=== PATIENT | female | born 1965 | race African-American/Black ===

== ENCOUNTER 2017-01-15 10:40 | Emergency (ER) | payer OTHER ==
[~2017-01-15] VITALS: Ht 160 cm; Wt 56.5 kg
[~2017-01-15 10:40] MED LIST: NITR-58 PO; PHEN-537 PO
[2017-01-15 10:44] VITALS: Ht 160 cm; Wt 56.5 kg
[2017-01-15 11:43] LABS: ADD UMIC YES; UR ASCORBIC ACID NEGATIVE (NEGATIVE); UR BACTERIA FEW /HPF (NONE SEEN); UR BILIRUBIN (Dip) NEGATIVE (NEGATIVE); UR BLOOD (Dip) 2+ mg/dL (NEGATIVE); UR CLARITY CLOUDY (CLEAR); UR COLOR YELLOW (YELLOW); UR GLUCOSE (Dip) NEGATIVE (NEGATIVE); UR KETONES (Dip) NEGATIVE (NEGATIVE); UR LEUKOCYTE ESTERASE (Dip) 3+ Leu/ul (NEGATIVE); UR MUCUS FEW /HPF (NONE SEEN); UR NITRITE (Dip) NEGATIVE (NEGATIVE); UR RBC 32 /HPF (0-5); UR SPECIFIC GRAVITY (Dip) 1.009 (1.003-1.030); UR SQUAMOUS EPITHELIAL CELL FEW /HPF (FEW); UR TOTAL PROTEIN (Dip) 2+ mg/dl (NEGATIVE); UR UROBILINOGEN (Dip) NEGATIVE (NEGATIVE)
--- NOTE | 2017-01-15 11:43 | ERD ---
ER Documentation Chief Complaint Date/Time DATE: 01/15/17 TIME: 11:41 Chief Complaint DYSURIA X 4 DAYS HPI This is a 51-year-old female presenting to the emergency department with dysuria 3 days. Patient states she has pain and burning with urination as well as frequent urination. No hematuria. No urinary frequency. No vaginal discharge or vaginal bleeding. No rash or itching. No vaginal lesions. No fevers or chills. No flank or back pain. No nausea, vomiting or diarrhea. Patient did not take medication for this. ROS All systems reviewed and are negative except as per history of present illness. Medications Home Meds Active Scripts Phenazopyridine Hcl* (Pyridium*) 100 Mg Tab, 100 MG PO TID Y for URINARY PAIN, # 8 TAB Prov:OSEI GUDINO NP 01/15/17 Nitrofurantoin Monohyd Macrocr* (Macrobid*) 100 Mg Capsr, 100 MG PO BID for 5 Days, CAP Prov:OSEI GUDINO NP 01/15/17 Nitrofurantoin Monohyd Macrocr* (Macrobid*) 100 Mg Capsr, 100 MG PO BID for 10 Days, CAP Prov:MIRELLA OZUNA PA-C 06/15/15 Phenazopyridine Hcl* (Pyridium*) 100 Mg Tab, 100 MG PO TID Y for PAIN, #14 TAB Prov:MI ALVARADO PA-C 03/17/15 Nitrofurantoin Monohyd Macrocr* (Macrobid*) 100 Mg Capsr, 100 MG PO BID for 14 Days, CAP Prov:MI ALVARADO PA-C 03/17/15 Phenazopyridine Hcl* (Pyridium*) 100 Mg Tab, 100 MG PO TID Y for DYSURIA, #8 TAB Prov:SHAE WOMACK NP 12/12/14 Nitrofurantoin Monohyd Macrocr* (Macrobid*) 100 Mg Capsr, 100 MG PO BID for 14 Days, CAP Prov:SHAE WOMACK NP 12/12/14 Allergies Allergies: Coded Allergies: ciprofloxacin (Verified Allergy, Mild, VOMITING, 01/15/17) PMhx/Soc History of Surgery: Yes (HYSTERECTOMY AND ) Anesthesia Reaction: No Hx Neurological Disorder: No Hx Respiratory Disorders: No Hx Cardiac Disorders: No Hx Psychiatric Problems: No Hx Miscellaneous Medical Probl: Yes ( kidney infection) Hx Alcohol Use: No Hx Substance Use: No Hx Tobacco Use: No Smoking Status: Never smoker Physical Exam Vitals Vital Signs Date Time Temp Pulse Resp B/P Pulse Ox O2 Delivery O2 Flow Rate FiO2 01/15/17 10:44 97.0 78 18 126/96 99 Physical Exam Const: No acute distress, alert Head: Atraumatic Eyes: Normal Conjunctiva ENT: Normal External Ears, Nose and Mouth. Neck: Full range of motion..~ No meningismus. Resp: Clear to auscultation bilaterally Cardio: Regular rate and rhythm, no murmurs Abd: Soft, non distended. Normal bowel sounds, suprapubic tenderness. Skin: No petechiae or rashes Back: No midline or flank tenderness Ext: No cyanosis, or edema Neur: Awake and alert Psych: Normal Mood and Affect Results 24 hrs Laboratory Tests Test 01/15/17 11:15 Urine Color YELLOW Urine Clarity CLOUDY Urine pH 8.0 Urine Specific [place] 1.009 Urine Ketones NEGATIVEmg/dL Urine Nitrite NEGATIVEmg/dL Urine Bilirubin NEGATIVEmg/dL Urine Urobilinogen NEGATIVEmg/dL Urine Leukocyte Esterase 3+Denise/ul Urine Microscopic RBC 32/HPF Urine Microscopic WBC > 182/HPF Urine Squamous Epithelial Cells FEW/HPF Urine Bacteria FEW/HPF Urine Mucus FEW/HPF Urine Hemoglobin 2+mg/dL Urine Glucose NEGATIVEmg/dL Urine Total Protein 2+mg/dl Current Medications Medications (Trade) Dose Ordered Sig/Rosalina Route PRN Reason Start Time Stop Time Status Last Admin Dose Admin Ceftriaxone Sodium (Rocephin) 2 gm ONCE ONCE IM 01/15/17 12:00 01/15/17 12:01 DC 01/15/17 12:25 Lidocaine (Xylocaine 1% (Mdv) 20 ml) 20 ml ONCE ONCE SC 01/15/17 12:00 01/15/17 12:01 DC 01/15/17 12:25 Procedures/MDM MDM: This is a 51-year-old female presenting to the emergency department with dysuria and frequent urination 3 days. Physical exam reveals suprapubic tenderness. No CVA tenderness. No fevers or chills. No tachycardia. Urinalysis shows 3+ leukocyte Estrace, 2+ protein, greater than 182 white blood cells and 32 RBCs. Patient given 1 g Rocephin IM while in the ED Patient will be sent home with prescription for Macrobid. low suspicion for pyelonephritis due to patient being afebrile and no tachycardia. No flank pain. No CVA tenderness. Patient is appropriate for outpatient management will be given prescription for Macrobid. Instructed patient to follow-up with primary care provider in the next 2-3 days for reassessment. Return to ED for any high fever, chest pain, difficulty breathing, shortness breath, wheezing, vomiting, diarrhea, abdominal pain or any new or worsening symptoms. Patient verbalizes understanding. All questions answered at discharge. Departure Diagnosis: Primary Impression: Urinary tract infection Condition: Stable OSEI GUDINO NP Jan 15, 2017 11:43
[2017-01-15] MEDS ORDERED: PHEN-537 PO (11:48)
[2017-01-15] MEDS ORDERED: NITR-58 PO (11:48)
[2017-01-15] MEDS ORDERED: CEFTRIAXONE 2 GM INJ IM ONE (12:00)
[2017-01-15] MEDS ORDERED: LIDOCAINE 1% (MDV) 20 ML INJ SC ONE (12:00)
== END 2017-01-15 12:27 | disposition home or self-care (01) ==
LOC: FTE 10:40
DX: N39.0 Urinary tract infection, site not specified (principal)
CPT/HCPCS: 81001; 96372; J0696; Z7502

== ENCOUNTER 2017-02-22 12:08 | Emergency (ER) | payer OTHER ==
[~2017-02-22] VITALS: Ht 167.6 cm; Wt 56.0 kg
[2017-02-22 12:11] VITALS: Ht 167.6 cm; Wt 56.0 kg
--- NOTE | 2017-02-22 14:08 | ERD ---
ER Documentation Chief Complaint Date/Time DATE: 02/22/17 TIME: 14:07 Chief Complaint Complains of urine problems x 4 days HPI 51 low-frequency emergency department due to urinary tract infections comes in with bladder pain, complaining of painful urination, urgency and frequency for the last 4 days. Patient states that her last UTI was about a month ago and she was on Macrobid. She denies any fevers, chills, vomiting, diarrhea, hematuria, flank pain. ROS All systems reviewed and are negative except as per history of present illness. Medications Home Meds Active Scripts Phenazopyridine Hcl* (Pyridium*) 100 Mg Tab, 100 MG PO TID Y for URINARY PAIN, # 8 TAB Prov:OSEI GUDINO NP 01/15/17 Nitrofurantoin Monohyd Macrocr* (Macrobid*) 100 Mg Capsr, 100 MG PO BID for 5 Days, CAP Prov:OSEI GUDINO NP 01/15/17 Nitrofurantoin Monohyd Macrocr* (Macrobid*) 100 Mg Capsr, 100 MG PO BID for 10 Days, CAP Prov:MIRELLA OZUNA PA-C 06/15/15 Phenazopyridine Hcl* (Pyridium*) 100 Mg Tab, 100 MG PO TID Y for PAIN, #14 TAB Prov:MI ALVARADO PA-C 03/17/15 Nitrofurantoin Monohyd Macrocr* (Macrobid*) 100 Mg Capsr, 100 MG PO BID for 14 Days, CAP Prov:MI ALVARADO PA-C 03/17/15 Phenazopyridine Hcl* (Pyridium*) 100 Mg Tab, 100 MG PO TID Y for DYSURIA, #8 TAB Prov:SHAE WOMACK NP 12/12/14 Nitrofurantoin Monohyd Macrocr* (Macrobid*) 100 Mg Capsr, 100 MG PO BID for 14 Days, CAP Prov:SHAE WOMACK NP 12/12/14 Allergies Allergies: Coded Allergies: ciprofloxacin (Verified Allergy, Mild, VOMITING, 01/15/17) PMhx/Soc History of Surgery: Yes (HYSTERECTOMY AND ) Anesthesia Reaction: No Hx Neurological Disorder: No Hx Respiratory Disorders: No Hx Cardiac Disorders: No Hx Psychiatric Problems: No Hx Miscellaneous Medical Probl: Yes ( kidney infection) Hx Alcohol Use: No Hx Substance Use: No Hx Tobacco Use: No Smoking Status: Never smoker Physical Exam Vitals Vital Signs Date Time Temp Pulse Resp B/P Pulse Ox O2 Delivery O2 Flow Rate FiO2 02/22/17 12:11 98.5 86 20 106/70 97 Physical Exam General: Well-developed, well-nourished. The patient appears in no acute distress. HEENT: Head is normocephalic, atraumatic. No scleral icterus. Neck: Supple. Nontender. Lungs: Clear to auscultation. Normal air movement. Heart: Regular rate and rhythm. S1 and S2 are normal. No murmurs, gallops, or rubs. Abdomen: Soft, nontender, nondistended. Bowel sounds are normoactive. Extremities: No clubbing or cyanosis. Normal pulses. Moving extremities x 4. No weakness. Neurologic: Alert and oriented 3. No focal deficits. Skin: Normal turgor. No rash or lesions. Results 24 hrs Laboratory Tests Test 02/22/17 14:23 Bedside Urine pH (LAB) 7.5 Bedside Urine Protein (LAB) 3+ Bedside Urine Glucose (UA) Negative Bedside Urine Ketones (LAB) Negative Bedside Urine Blood 2+ Bedside Urine Nitrite (LAB) Negative Bedside Urine Leukocyte Esterase (L 3+ Procedures/MDM 51 year old female comes in with a urinary tract infection, she comes in with frequent UTIs. Patient comes in with multiple UTIs in the past, last treated with macrobid. Patient has been advised, she has a primary care doctor and I spoken with her regarding a referral to see a urologist. She received a referral to see one, given her frequent urinary tract infections. Departure Diagnosis: Primary Impression: Urinary tract infection Condition: MI Castro PA-C Feb 22, 2017 14:08
[2017-02-22 14:17] LABS: URINE BLOOD (Dip) POC 2+ (NEGATIVE)
== END 2017-02-22 15:00 | disposition home or self-care (01) ==
LOC: FTE 12:08
DX: N39.0 Urinary tract infection, site not specified (principal)
CPT/HCPCS: 81003; Z7502; 99282

== ENCOUNTER 2017-03-28 09:53 | Emergency (ER) | END 2017-03-28 12:42 | disposition home or self-care (01) | DX: N39.0 Urinary tract infection, site not specified (principal) | CPT/HCPCS: 81003; Z7502 ==

== ENCOUNTER 2017-07-12 09:18 | Emergency (ER) | END 2017-07-12 11:54 | disposition home or self-care (01) ==

== ENCOUNTER 2017-11-29 09:02 | Emergency (ER) | END 2017-11-29 10:39 | disposition home or self-care (01) ==

== ENCOUNTER 2018-01-02 13:20 | Emergency (ER) | END 2018-01-02 17:23 | disposition home or self-care (01) ==

== ENCOUNTER 2018-04-06 09:43 | Emergency (ER) | END 2018-04-06 10:55 | disposition home or self-care (01) ==

== ENCOUNTER 2018-04-09 09:49 | Emergency (ER) | END 2018-04-09 12:16 | disposition home or self-care (01) ==

== ENCOUNTER 2018-06-30 08:05 | Emergency (ER) | payer OTHER ==
[~2018-06-30] VITALS: Ht 165.1 cm; Wt 57.6 kg
[~2018-06-30 08:05] MED LIST changes: +ACET500C5 PO; +CEPH-443 PO; +PHEN-538 PO
[2018-06-30 08:28] VITALS: BP 110/76; PULSE 72; RESP 20; Ht 165.1 cm; Wt 57.6 kg
[2018-06-30] MEDS ORDERED: PHEN-537 PO (09:03)
[2018-06-30] MEDS ORDERED: DOCU-144 PO (09:03)
[2018-06-30] MEDS ORDERED: CEPH-443 PO (09:07)
--- NOTE | 2018-06-30 09:11 | ERD ---
ER Documentation Chief Complaint Chief Complaint Complains of urine problems x 1 week HPI 52-year-old female presents ED with UTI-like symptoms for the past week. Admits to dysuria and increased frequency of urination. Denies fever, chills, hematuria, back pain, nausea, vomiting, diarrhea, abdominal pain, chest pain, shortness breath and other symptoms. Allergy to ciprofloxacin ROS All systems reviewed and are negative except as per history of present illness. Medications Home Meds Active Scripts Cephalexin* (Keflex*) 500 Mg Capsule, 500 MG PO TID for 7 Days, CAP Prov:ZULEIKA GILBERTC 06/30/18 Phenazopyridine Hcl* (Pyridium*) 100 Mg Tab, 100 MG PO TID PRN for URINARY PAIN, #8 TAB Prov:ZULEIKA GILBERT PA-C 06/30/18 Docusate Sodium* (Colace*) 100 Mg Capsule, 100 MG PO TID, #10 CAP Prov:ZULEIKA GILBERT PA-C 06/30/18 Cephalexin* (Keflex*) 500 Mg Capsule, 500 MG PO QID for 7 Days, CAP Prov:IMAN RUTHC 04/09/18 Phenazopyridine Hcl* (Pyridium*) 200 Mg Tab, 200 MG PO TID PRN for URINARY PAIN, #6 TAB Prov:ARLINE ROSAC 04/06/18 Nitrofurantoin Monohyd Macrocr* (Macrobid*) 100 Mg Capsr, 100 MG PO BID for 7 Days, CAP Prov:ARLINE ROSAC 04/06/18 Phenazopyridine Hcl* (Pyridium*) 100 Mg Tab, 100 MG PO TID PRN for URINARY PAIN, #8 TAB Prov:ZULEIKA GILBERTC 03/03/18 Nitrofurantoin Monohyd Macrocr* (Macrobid*) 100 Mg Capsr, 100 MG PO BID for 7 D ays, CAP Prov:ZULEIKA GILBERT PA-C 03/03/18 Acetaminophen* (Tylophen*) 500 Mg Capsule, 1 CAP PO Q6H PRN for PAIN AND OR ELEVATED TEMP, #30 CAP Prov:JOHNNA REILLY PA-C 01/02/18 Cephalexin* (Keflex*) 500 Mg Capsule, 500 MG PO QID for 7 Days, CAP Prov:JOHNNA REILLY-C 01/02/18 Nitrofurantoin Monohyd Macrocr* (Macrobid*) 100 Mg Capsr, 100 MG PO BID for 14 Days, CAP Prov:LUDIVINA OLIVARES-C 11/29/17 Nitrofurantoin Monohyd Macrocr* (Macrobid*) 100 Mg Capsr, 100 MG PO BID for 7 Days, CAP Prov:LUDIVINA OLIVARES-C 07/12/17 Cephalexin* (Keflex*) 500 Mg Capsule, 500 MG PO TID for 7 Days, CAP Prov:MI ALVARADOC 03/28/17 Phenazopyridine Hcl* (Pyridium*) 100 Mg Tab, 100 MG PO TID PRN for URINARY PAIN, #8 TAB Prov:OSEI GUDINO NP 01/15/17 Nitrofurantoin Monohyd Macrocr* (Macrobid*) 100 Mg Capsr, 100 MG PO BID for 5 Days, CAP Prov:OSEI GUDINO NP 01/15/17 Nitrofurantoin Monohyd Macrocr* (Macrobid*) 100 Mg Capsr, 100 MG PO BID for 10 Days, CAP Prov:MIRELLA OZUNAC 06/15/15 Phenazopyridine Hcl* (Pyridium*) 100 Mg Tab, 100 MG PO TID PRN for PAIN, #14 TAB Prov:MI ALVARADOC 03/17/15 Nitrofurantoin Monohyd Macrocr* (Macrobid*) 100 Mg Capsr, 100 MG PO BID for 14 Days, CAP Prov:MI ALVARADOC 03/17/15 Phenazopyridine Hcl* (Pyridium*) 100 Mg Tab, 100 MG PO TID PRN for DYSURIA, #8 TAB Prov:SHAE WOMACK NP 12/12/14 Nitrofurantoin Monohyd Macrocr* (Macrobid*) 100 Mg Capsr, 100 MG PO BID for 14 Days, CAP Prov:SHAE WOMACK [employer] 12/12/14 Allergies Allergies: Coded Allergies: ciprofloxacin (Verified Allergy, Mild, VOMITING, 03/28/17) PMhx/Soc History of Surgery: Yes (Hysterectomy) Anesthesia Reaction: No Hx Neurological Disorder: No Hx Respiratory Disorders: No Hx Cardiac Disorders: No Hx Psychiatric Problems: No Hx Miscellaneous Medical Probl: No Hx Alcohol Use: No Hx Substance Use: Yes (Marijuana) Hx Tobacco Use: No Smoking Status: Current every day smoker Physical Exam Vitals Vital Signs Date Temp Pulse Resp B/P (MAP) Pulse Ox O2 O2 Flow FiO2 Time Delivery Rate 06/30/18 98.1 72 20 110/76 98 08:28 (87) Physical Exam Const: No acute distress Head: Atraumatic Eyes: Normal Conjunctiva ENT: Normal External Ears, Nose and Mouth. Neck: Full range of motion. No meningismus. Resp: Clear to auscultation bilaterally Cardio: Regular rate and rhythm, no murmurs Abd: Soft, non tender, non distended. Normal bowel sounds Results 24 hrs Laboratory Tests Test 06/30/18 08:48 06/30/18 08:50 Urine Color YELLOW Urine Clarity CLOUDY Urine pH 8.0 Urine Specific [place] 1.010 Urine Ketones NEGATIVE mg/dL Urine Nitrite NEGATIVE mg/dL Urine Bilirubin NEGATIVE mg/dL Urine Urobilinogen NEGATIVE mg/dL Urine Leukocyte Esterase 2+ Denise/ul Urine Microscopic RBC 56 /HPF Urine Microscopic WBC > 182 /HPF Urine Squamous Epithelial Cells FEW /HPF Urine Amorphous Crystals FEW /HPF Urine Bacteria FEW /HPF Urine Hemoglobin 3+ mg/dL Urine Glucose NEGATIVE mg/dL Urine Total Protein 2+ mg/dl POC Beta HCG, Qualitative NEGATIVE Current Medications Medications Dose Sig/Rosalina Start Time Status Last (Trade) Ordered Route PRN Stop Time Admin Dose Reason Admin 100 mg ONCE ONCE 06/30/18 Phenazopyridi PO 09:30 06/30/18 ne HCl 09:31 (Pyridium) Procedures/MDM LAB INTERPRETATION: Urinalysis remarkable for over 182 WBCs, microscopic RBCs 56, leukocyte esterase 2+ urine negative ER COURSE: The patient was given PYRIDIUM The medication was well tolerated and the patient reports improvement in symptoms. The patient was stable throughout ED course. I kept the patient and/or family informed of laboratory and diagnostic imaging results throughout the emergency room course. The patient was promptly evaluated and a treatment plan was devised based on H&P and other data. This plan was discussed with the patient who agreed and had no further questions or concerns prior to discharge. MEDICAL DECISION MAKIN-year-old female presents ED with UTI-like symptoms. Urinalysis reflects UTI. Patient will be treated with antibiotics. At discharge patient is also requesting a medication for constipation. At this time there is no evidence of gastrointestinal or genitourinary emergency. No evidence of septic stone, seps is, obstructive pyelonephritis, appendicitis, small bowel obstruction, perforated viscus, cholecystitis, pancreatitis, mesenteric ischemia, among others. Vitals are stable patient can be managed close outpatient follow-up. Advised patient follow-up with primary care in 48 hours. Return to ED with any worsening symptoms. DISPOSITION PLAN: We discussed follow up with the patient's primary care doctor within 24 to 48 hours. Patient counseled regarding my diagnostic impression and care plan. Prior to discharge all questions answered. Pt agrees with treatment plan and understands strict return precautions. Precautionary instructions provided including instructions to return to the ER if not improving or for any worsening or changing symptoms or concerns. SPECIALIST FOLLOW UP RECOMMENDED: None Patient has been advised to follow up with primary care in 1-2 days. Disclaimer: Inadvertent spelling and grammatical errors are likely due to EHR/dictation software use and do not reflect on the overall quality of patient care. Also, please note that the electronic time recorded on this note does not necessarily reflect the actual time of the patient encounter. Blood Pressure Assessment: Patient's blood pressure was elevated (>120/80) but appears stable without evidence of hypertension emergency or urgency. The patient was counseled about the risks of hypertension and urged to pursue outpatient monitoring and therapy within a week with their primary care physician. Departure Diagnosis: Primary Impression: Urinary tract infection Urinary tract infection type: site unspecified Hematuria presence: without hematuria Qualified Codes: N39.0 - Urinary tract infection, site not specified Additional Impression: Constipation Constipation type: unspecified constipation type Qualified Codes: K59.00 - Constipation, unspecified Condition: Stable Patient Instructions: Understanding Urinary Tract Infections (UTIs), Const ipation (Adult) Referrals: COMMUNITY CLINICS YOU HAVE RECEIVED A MEDICAL SCREENING EXAM AND THE RESULTS INDICATE THAT YOU DO NOT HAVE A CONDITION THAT REQUIRES URGENT TREATMENT IN THE EMERGENCY DEPARTMENT. FURTHER EVALUATION AND TREATMENT OF YOUR CONDITION CAN WAIT UNTIL YOU ARE SEEN IN YOUR DOCTORS OFFICE WITHIN THE NEXT 1-2 DAYS. IT IS YOUR RESPONSIBILITY TO MAKE AN APPOINTMENT FOR FOLOW-UP CARE. IF YOU HAVE A PRIMARY DOCTOR --you should call your primary doctor and schedule an appointment IF YOU DO NOT HAVE A PRIMARY DOCTOR YOU CAN CALL OUR PHYSICIAN REFERRAL HOTLINE AT IF YOU CAN NOT AFFORD TO SEE A PHYSICIAN YOU CAN CHOSE FROM THE FOLLOWING [facility] [address] [facility] [address] [facility] [address] [facility] [address] [facility] [address] [facility]. [facility] [address] Additional Instructions: Patient advised to return to the ED immediately for new or worsening symptoms. Patient advised to follow up with primary care provider in the next 24-48 hours. Patient verbalized understanding and agrees with treatment plan and course of action. If patient has no primary care they may follow up with one of the [facility] clinics listed on the following page or one of the options listed below [facility] + [facility] [address] [place] [id number] or [facility] [address] [place] [address] or [facility] [address] [place] [address] ZULEIKA GILBERT PA-C Jun 30, 2018 09:11
[2018-06-30] MEDS ORDERED: PHENAZOPYRIDINE 100 MG TAB PO ONE (09:30)
== END 2018-06-30 09:27 | disposition home or self-care (01) ==
LOC: FTE 08:05
DX: N39.0 Urinary tract infection, site not specified (principal); K59.00 Constipation, unspecified; F17.210 Nicotine dependence, cigarettes, uncomplicated
CPT/HCPCS: 81001; 81025; Z7502; Z7610; 99283

== ENCOUNTER 2018-10-16 09:41 | Emergency (ER) | payer OTHER ==
[~2018-10-16] VITALS: Wt 67.0 kg
[~2018-10-16 09:41] MED LIST changes: +DOCU-144 PO
[2018-10-16 09:47] VITALS: BP 140/71; PULSE 71; RESP 18
[2018-10-16] MEDS ORDERED: PHENAZOPYRIDINE 100 MG TAB PO ONE (10:30)
[2018-10-16] MEDS ORDERED: FLUT9.9S NASAL (10:59)
[2018-10-16] MEDS ORDERED: NITR-58 PO (10:59)
[2018-10-16] MEDS ORDERED: PHEN-537 PO (10:59)
[2018-10-16] MEDS ORDERED: CETI10CA PO (10:59)
--- NOTE | 2018-10-16 11:46 | ERD ---
ER Documentation Chief Complaint Chief Complaint DYSURIA X 1 WEEK HPI 53-year-old female patient with no significant past medical history presents the ED complaining of nasal congestion that started in July and has had no relief. States that the change in environment has made it worse. Reports that she also has dysuria since 1 week ago. States that she has burning with urination. Reports that she is sexually active, no concerns for STDs. Denies any vaginal discharge, vaginal bleeding, abdominal pain, chest pain, shortness of breath, wheezing. ROS All systems reviewed and are negative except as per history of present illness. Medications Home Meds Active Scripts Nitrofurantoin Monohyd Macrocr* (Macrobid*) 100 Mg Capsr, 100 MG PO BID for 7 Days, CAP Prov:IMAN RUTH PA-C 10/16/18 Phenazopyridine Hcl* (Pyridium*) 100 Mg Tab, 100 MG PO TID PRN for URINARY PAIN, #8 TAB Prov:IMAN RUTH PA-C 10/16/18 Fluticasone Propionate (Flonase Allergy Relief) [address] [place].susp, 1 SPRAY NASAL BID, #1 BOTTLE TO EACH NOSTRIL Prov:IMAN RUTH PA-C 10/16/18 Cetirizine Hcl* (Zyrtec*) 10 Mg Capsule, 10 MG PO DAILY, #10 TAB.CHEW Prov:IMAN RUTH PA-C 10/16/18 Cephalexin* (Keflex*) 500 Mg Capsule, 500 MG PO TID for 7 Days, CAP Prov:ZULEIKA GILBERT PA-C 06/30/18 Phenazopyridine Hcl* (Pyridium*) 100 Mg Tab, 100 MG PO TID PRN for URINARY PAIN, #8 TAB Prov:ZULEIKA GILBERT PA-C 06/30/18 Docusate Sodium* (Colace*) 100 Mg Capsule, 100 MG PO TID, #10 CAP Prov:ZULEIKA GILBERT PA-C 06/30/18 Cephalexin* (Keflex*) 500 Mg Capsule, 500 MG PO QID for 7 Days, CAP Prov:IMAN RUTH PA-C 04/09/18 Phenazopyridine Hcl* (Pyridium*) 200 Mg Tab, 200 MG PO TID PRN for URINARY PAIN, #6 TAB Prov:ARLINE ROSA PA-C 04/06/18 Nitrofurantoin Monohyd Macrocr* (Macrobid*) 100 Mg Capsr, 100 MG PO BID for 7 Days, CAP Prov:ROSAARLINE AGGIE-C 04/06/18 Phenazopyridine Hcl* (Pyridium*) 100 Mg Tab, 100 MG PO TID PRN for URINARY PAIN, #8 TAB Prov:ZULEIKA GILBERT-C 03/03/18 Nitrofurantoin Monohyd Macrocr* (Macrobid*) 100 Mg Capsr, 100 MG PO BID for 7 Days, CAP Prov:ZULEIKA GILBERT-C 03/03/18 Acetaminophen* (Tylophen*) 500 Mg Capsule, 1 CAP PO Q6H PRN for PAIN AND OR ELEVATED TEMP, #30 CAP Prov:JOHNNA REILLY-C 01/02/18 Cephalexin* (Keflex*) 500 Mg Capsule, 500 MG PO QID for 7 Days, CAP Prov:JOHNNA REILLY-C 01/02/18 Nitrofurantoin Monohyd Macrocr* (Macrobid*) 100 Mg Capsr, 100 MG PO BID for 14 Days, CAP Prov:LUDIVINA OLIVARES-C 11/29/17 Nitrofurantoin Monohyd Macrocr* (Macrobid*) 100 Mg Capsr, 100 MG PO BID for 7 Days, CAP Prov:LUDIVINA OLIVARES-C 07/12/17 Cephalexin* (Keflex*) 500 Mg Capsule, 500 MG PO TID for 7 Days, CAP Prov:MI ALVARADO-C 03/28/17 Phenazopyridine Hcl* (Pyridium*) 100 Mg Tab, 100 MG PO TID PRN for URINARY PAIN, #8 TAB Prov:OSEI GUDINO NP 01/15/17 Nitrofurantoin Monohyd Macrocr* (Macrobid*) 100 Mg Capsr, 100 MG PO BID for 5 Days, CAP Prov:OSEI GUDINO PERSONAL COMPUTER SPECIALIST 01/15/17 Nitrofurantoin Monohyd Macrocr* (Macrobid*) 100 Mg Capsr, 100 MG PO BID for 10 Days, CAP Prov:MIRELLA OZUNA PA-C 06/15/15 Phenazopyridine Hcl* (Pyridium*) 100 Mg Tab, 100 MG PO TID PRN for PAIN, #14 TAB Prov:MI ALVARADO PA-C 03/17/15 Nitrofurantoin Monohyd Macrocr* (Macrobid*) 100 Mg Capsr, 100 MG PO BID for 14 Days, CAP Prov:MI ALVARADO PA-C 03/17/15 Phenazopyridine Hcl* (Pyridium*) 100 Mg Tab, 100 MG PO TID PRN for DYSURIA, #8 TAB Prov:SHAE WOMACK NP 12/12/14 Nitrofurantoin Monohyd Macrocr* (Macrobid*) 100 Mg Capsr, 100 MG PO BID for 14 Days, CAP Prov:SHAE WOMACK NP 12/12/14 Allergies Allergies: Coded Allergies: ciprofloxacin (Verified Allergy, Mild, VOMITING, 10/16/18) PMhx/Soc History of Surgery: Yes (Hysterectomy) Anesthesia Reaction: No Hx Neurological Disorder: No Hx Respiratory Disorders: No Hx Cardiac Disorders: No Hx Psychiatric Problems: No Hx Miscellaneous Medical Probl: No Hx Alcohol Use: No Hx Substance Use: Yes (Marijuana) Hx Tobacco Use: No Smoking Status: Former smoker FmHx Family History: No diabetes, No coronary disease Physical Exam Vitals Vital Signs Date Temp Pulse Resp B/P (MAP) Pulse Ox O2 O2 Flow FiO2 Time Delivery Rate 10/16/18 98.1 71 18 140/71 99 09:47 (94) Physical Exam Const: [id number], well-nourished. In no acute distress. Head: Atraumatic, normocephalic Eyes: Normal Conjunctiva without injection. No purulent discharge. ENT: Normal external ear, nose. Moist oropharynx without tonsillar exudates. Non-erythematous pharynx. Uvula midline. No drooling. No trismus. Nasal congestion. Neck: No cervical midline tenderness. Full range of motion. No meningismus. No cervical lymphadenopathy. No JVD. Resp: Clear to auscultation bilaterally. No wheezing, rhonchi, rales, or crackles. No accessory muscle use. No retractions. Cardio: Regular rate and rhythm. No murmurs, rubs or gallops. Abd: Soft, nontender, non distended. Normal bowel sounds. No palpable masses. No rebound tenderness. No guarding. Negative McBurney's point. Negative psoas sign. Negative obturator sign. : See exam in MDM. Skin: No petechiae or rashes Back: No midline tenderness. No CVA tenderness. Ext: No cyanosis, or edema. Neur: Awake and alert. Normal gait. Normal coordination. Psych: Normal Mood and Affect Results 24 hrs Laboratory Tests Test 10/16/18 10:40 Bedside Urine pH (LAB) 7.5 Bedside Urine Protein (LAB) 3+ Bedside Urine Glucose (UA) Negative Bedside Urine Ketones (LAB) Negative Bedside Urine Blood 3+ Bedside Urine Nitrite (LAB) Negative Bedside Urine Leukocyte Esterase (L 3+ Current Medications Medications Dose Sig/Rosalina Start Time Status Last (Trade) Ordered Route PRN Stop Time Admin Dose Reason Admin 100 mg ONCE ONCE 10/16/18 DC 10/16/18 Phenazopyridi PO 10:30 10:37 ne HCl 10/16/18 10:31 (Pyridium) Procedures/MDM 53-year-old female with no significant past medical history presents to ED complaining of dysuria that started 1 week ago. Patient is afebrile and nontoxic-appearing. Patient given Pyridium 100 mg here in the ED with improvement of her pain. Patient appears to have nasal congestion as well as rhinorrhea. Differentials include viral sinusitis and allergic rhinitis. Patient's physical exam include lungs which were clear to auscultation and a normal pulse oximetry. There is a low suspicion for pneumonia, pneumothorax, mononucleosis, pulmonary embolism, epiglottitis, otitis media, otitis externa, viral/strep pharyngitis, sinusitis, myocarditis, pericarditis, endocarditis, peritonsillar abscess, mastoiditis, retropharyngeal abscess, meningitis, sepsis, acute abdomen or other emergent conditions. Patient's urine shows 3+ leukocyte esterase, 3+ hematuria. Urine culture pending. Patient be treated for urinary tract infection. Low suspicion for ectopic , ovarian torsion, gastritis, GERD, peptic ulcer disease, cholecystitis, choledocholithiasis, cholangitis, pancreatitis, appendicitis, bowel obstruction, ileus, volvulus, nephrolithiasis, pyelonephritis, hepatitis, perforated viscus, diverticulitis, strangulated/incarcerated hernia, DKA, acute abdomen, mesenteric ischemia or other emergent conditions. Diagnosis: Dysuria, Nasal Congestion, Rhinorrhea Discharge medications: Zyrtec, Flonase, Pyridium, Macrobid Follow up with primary care physician in 1-2 days. Instructed patient to return to the ED sooner for any worsening symptoms. Patient's questions were answered. Patient is hemodynamically stable. Patient understood and agreed with discharge plan. Patient discharged stable. Disclaimer: Inadvertent spelling and grammatical errors are likely due to EHR/dictation software use and do not reflect on the overall quality of patient care. Also, please note that the electronic time recorded on this note does not necessarily reflect the actual time of the patient encounter. Departure Diagnosis: Primary Impression: Dysuria Additional Impressions: Nasal congestion Rhinorrhea Condition: Stable Patient Instructions: Urinary Tract Infections in Women, Allergic Rhinitis Referrals: [facility] YOU HAVE RECEIVED A MEDICAL SCREENING EXAM AND THE RESULTS INDICATE THAT YOU DO NOT HAVE A CONDITION THAT REQUIRES URGENT TREATMENT IN THE EMERGENCY DEPARTMENT. FURTHER EVALUATION AND TREATMENT OF YOUR CONDITION CAN WAIT UNTIL YOU ARE SEEN IN YOUR DOCTORS OFFICE WITHIN THE NEXT 1-2 DAYS. IT IS YOUR RESPONSIBILITY TO MA KE AN APPOINTMENT FOR FOLOW-UP CARE. IF YOU HAVE A PRIMARY DOCTOR --you should call your primary doctor and schedule an appointment IF YOU DO NOT HAVE A PRIMARY DOCTOR YOU CAN CALL OUR PHYSICIAN REFERRAL HOTLINE AT IF YOU CAN NOT AFFORD TO SEE A PHYSICIAN YOU CAN CHOSE FROM THE FOLLOWING [facility] [address] [facility]. [facility] [address] [facility]. [facility] [address] [facility] [address] [facility] [facility] [address] [facility]. [facility]. [address] [facility]. [facility] YOU HAVE RECEIVED A MEDICAL SCREENING EXAM AND THE RESULTS INDICATE THAT YOU DO NOT HAVE A CONDITION THAT REQUIRES URGENT TREATMENT IN THE EMERGENCY DEPARTMENT. FURTHER EVALUATION AND TREATMENT OF YOUR CONDITION CAN WAIT UNTIL YOU ARE SEEN IN YOUR DOCTORS OFFICE WITHIN THE NEXT 1-2 DAYS. IT IS YOUR RESPONSIBILITY TO MAKE AN APPOINTMENT FOR FOLOW-UP CARE. IF YOU HAVE A PRIMARY DOCTOR --you should call your primary doctor and schedule and appointment IF YOU DO NOT HAVE A PRIMARY DOCTOR YOU CAN CALL OUR PHYSICIAN REFERRAL HOTLINE AT . IF YOU CAN NOT AFFORD TO SEE A PHYSICIAN YOU CAN CHOSE FROM THE FOLLOWING [facility] INSTITUTIONS: [facility] [address] [place] [address] [facility] [address] [place] [address] [facility] [address] [place] [address] [facility] URGENT CARE/SPECIALTIES Additional Instructions: Call your primary care doctor TOMORROW for an appointment during the next 2-3 days.See the doctor sooner or return here if your condition worsens before your appointment time. IMAN RUTH PA-C Oct 16, 2018 11:45
== END 2018-10-16 11:16 | disposition home or self-care (01) ==
LOC: FTE 09:41
DX: R30.0 Dysuria (principal); J34.89 Other specified disorders of nose and nasal sinuses; Z87.891 Personal history of nicotine dependence
CPT/HCPCS: 81003; 87086; Z7502; Z7610; 99283

== ENCOUNTER 2018-12-28 07:27 | Emergency (ER) | payer OTHER ==
[~2018-12-28] VITALS: Ht 167.6 cm; Wt 56.6 kg
[~2018-12-28 07:27] MED LIST changes: +CETI10CA PO; +FLUT9.9S NASAL
[2018-12-28 07:32] VITALS: BP 119/82; PULSE 76; RESP 18; Ht 167.6 cm; Wt 56.6 kg
[2018-12-28] MEDS ORDERED: NITR-58 PO (08:23)
--- NOTE | 2018-12-28 08:27 | ERD ---
ER Documentation Chief Complaint Chief Complaint DYSURIA X 3 DAYS. HPI 53-year-old female presenting with dysuria x3 days. Patient states it borjas with urination denies she denies any back pain fevers or hematuria. She states that she has urinary frequency. Denies medical problems. Allergic to Cipro. Surgical history denies. Social history smokes marijuana. ROS All systems reviewed and are negative except as per history of present illness. Medications Home Meds Active Scripts Nitrofurantoin Monohyd Macrocr* (Macrobid*) 100 Mg Capsr, 100 MG PO BID for 14 Days, CAP Prov:LUDIVINA OLIVARES PA-C 12/28/18 Nitrofurantoin Monohyd Macrocr* (Macrobid*) 100 Mg Capsr, 100 MG PO BID for 7 Days, CAP Prov:IMAN RUTH PA-C 10/16/18 Phenazopyridine Hcl* (Pyridium*) 100 Mg Tab, 100 MG PO TID PRN for URINARY PAIN, #8 TAB Prov:IMAN RUTH PA-C 10/16/18 Fluticasone Propionate (Flonase Allergy Relief) 9.9 [address] [place].susp, 1 SPRAY NASAL BID, #1 BOTTLE TO EACH NOSTRIL Prov:IMAN RUTH PA-C 10/16/18 Cetirizine Hcl* (Zyrtec*) 10 Mg Capsule, 10 MG PO DAILY, #10 TAB.CHEW Prov:IMAN RUTH PA-C 10/16/18 Cephalexin* (Keflex*) 500 Mg Capsule, 500 MG PO TID for 7 Days, CAP Prov:ZULEIKA GILBERT PA-C 06/30/18 Phenazopyridine Hcl* (Pyridium*) 100 Mg Tab, 100 MG PO TID PRN for URINARY PAIN, #8 TAB Prov:ZULEIKA GILBERT PA-C 06/30/18 Docusate Sodium* (Colace*) 100 Mg Capsule, 100 MG PO TID, #10 CAP Prov:ZULEIKA GILBERT PA-C 06/30/18 Cephalexin* (Keflex*) 500 Mg Capsule, 500 MG PO QID for 7 Days, CAP Prov:IMAN RUTH PA-C 04/09/18 Phenazopyridine Hcl* (Pyridium*) 200 Mg Tab, 200 MG PO TID PRN for URINARY PAIN, #6 TAB Prov:ARLINE ROSA-C 04/06/18 Nitrofurantoin Monohyd Macrocr* (Macrobid*) 100 Mg Capsr, 100 MG PO BID for 7 Days, CAP Prov:ROSAARLINE AGGIE-C 04/06/18 Phenazopyridine Hcl* (Pyridium*) 100 Mg Tab, 100 MG PO TID PRN for URINARY PAIN, #8 TAB Prov:ZULEIKA GILBERT-C 03/03/18 Nitrofurantoin Monohyd Macrocr* (Macrobid*) 100 Mg Capsr, 100 MG PO BID for 7 Days, CAP Prov:ZULEIKA GILBERT-C 03/03/18 Acetaminophen* (Tylophen*) 500 Mg Capsule, 1 CAP PO Q6H PRN for PAIN AND OR ELEVATED TEMP, #30 CAP Prov:JOHNNA REILLY-C 01/02/18 Cephalexin* (Keflex*) 500 Mg Capsule, 500 MG PO QID for 7 Days, CAP Prov:JOHNNA REILLY-C 01/02/18 Nitrofurantoin Monohyd Macrocr* (Macrobid*) 100 Mg Capsr, 100 MG PO BID for 14 Days, CAP Prov:LUDIVINA OLIVARES-C 11/29/17 Nitrofurantoin Monohyd Macrocr* (Macrobid*) 100 Mg Capsr, 100 MG PO BID for 7 Days, CAP Prov:LUDIVINA OLIVARES-C 07/12/17 Cephalexin* (Keflex*) 500 Mg Capsule, 500 MG PO TID for 7 Days, CAP Prov:MI ALVARADO-C 03/28/17 Phenazopyridine Hcl* (Pyridium*) 100 Mg Tab, 100 MG PO TID PRN for URINARY PAIN, #8 TAB Prov:OSEI GUDINO NP 01/15/17 Nitrofurantoin Monohyd Macrocr* (Macrobid*) 100 Mg Capsr, 100 MG PO BID for 5 Days, CAP Prov:OSEI GUDINO NP 01/15/17 Nitrofurantoin Monohyd Macrocr* (Macrobid*) 100 Mg Capsr, 100 MG PO BID for 10 Days, CAP Prov:MIRELLA OZUNA PA-C 06/15/15 Phenazopyridine Hcl* (Pyridium*) 100 Mg Tab, 100 MG PO TID PRN for PAIN, #14 TAB Prov:MI ALVARADO PA-C 03/17/15 Nitrofurantoin Monohyd Macrocr* (Macrobid*) 100 Mg Capsr, 100 MG PO BID for 14 Days, CAP Prov:MI ALVARADO PA-C 03/17/15 Phenazopyridine Hcl* (Pyridium*) 100 Mg Tab, 100 MG PO TID PRN for DYSURIA, #8 TAB Prov:SHAE WOMACK NP 12/12/14 Nitrofurantoin Monohyd Macrocr* (Macrobid*) 100 Mg Capsr, 100 MG PO BID for 14 Days, CAP Prov:SHAE WOMACK NP 12/12/14 Allergies Allergies: Coded Allergies: ciprofloxacin (Verified Allergy, Mild, VOMITING, 10/16/18) PMhx/Soc History of Surgery: Yes (Hysterectomy) Anesthesia Reaction: No Hx Neurological Disorder: No Hx Respiratory Disorders: No Hx Cardiac Disorders: No Hx Psychiatric Problems: No Hx Miscellaneous Medical Probl: No Hx Alcohol Use: No Hx Substance Use: Yes (Marijuana) Hx Tobacco Use: Yes Smoking Status: Current every day smoker FmHx Family History: No diabetes, No coronary disease, No other Physical Exam Vitals Vital Signs Date Temp Pulse Resp B/P (MAP) Pulse Ox O2 O2 Flow FiO2 Time Delivery Rate 12/28/18 97.2 76 18 119/82 99 07:32 (94) Physical Exam GENERAL: The patient is well-appearing, well-nourished, in no acute distress CHEST: Clear to auscultation bilaterally. There are no rales, wheezes or rhonchi. HEART: Regular rate and rhythm. No murmurs, clicks, rubs or gallops. ABDOMEN:Soft, nontender and nondistended. Good bowel sounds. No rebound or guarding. No gross peritonitis. No gross organomegaly or masses. BACK: No midline or flank tenderness. Results 24 hrs Laboratory Tests Test 12/28/18 08:21 12/28/18 08:22 POC Beta HCG, Qualitative NEGATIVE Bedside Urine pH (LAB) 8.5 Bedside Urine Protein (LAB) 3+ Bedside Urine Glucose (UA) Negative Bedside Urine Ketones (LAB) Negative Bedside Urine Blood 3+ Bedside Urine Nitrite (LAB) Negative Bedside Urine Leukocyte Esterase (L 2+ Procedures/MDM ER course: Urinalysis positive for infection. MDM: 53-year-old female presenting with dysuria and urinary frequency. Patient's findings are positive for bacterial infection in the urine. Patient will be treated with antibiotics. I have low suspicion for pyelonephritis. I have low suspicion for acute abdominal emergency or pelvic abnormality. Patient is discharged with strict ER precautions and told to follow-up with primary care within 1 to 2 days for close evaluation. Patient is told symptoms change or worsen to return immediately to the ER. All questions answered at discharge Departure Diagnosis: Primary Impression: Urinary tract infection Condition: Stable Patient Instructions: Understanding Urinary Tract Infections (UTIs) Referrals: [facility] YOU HAVE RECEIVED A MEDICAL SCREENING EXAM AND THE RESULTS INDICATE THAT YOU DO NOT HAVE A CONDITION THAT REQUIRES URGENT TREATMENT IN THE EMERGENCY DEPARTMENT. FURTHER EVALUATION AND TREATMENT OF YOUR CONDITION CAN WAIT UNTIL YOU ARE SEEN IN YOUR DOCTORS OFFICE WITHIN THE NEXT 1-2 DAYS. IT IS YOUR RESPONSIBILITY TO MAKE AN APPOINTMENT FOR FOLOW-UP CARE. IF YOU HAVE A PRIMARY DOCTOR --you should call your primary doctor and schedule an appointment IF YOU DO NOT HAVE A PRIMARY DOCTOR YOU CAN CALL OUR PHYSICIAN REFERRAL HOTLINE AT IF YOU CAN NOT AFFORD TO SEE A PHYSICIAN YOU CAN CHOSE FROM THE FOLLOWING [facility] CLINICS [facility] [address] [facility]. [facility] [address] [facility] [address] [facility] [address] [facility]. [facility] [address] [facility]. [facility]. [address] Additional Instructions: FOLLOW UP WITH YOUR PRIMARY CARE PHYSICIAN TOMORROW.Return to this facility if you are not improving as expected. LUDIVINA OLIVARES PA-C Dec 28, 2018 08:27
== END 2018-12-28 08:38 | disposition home or self-care (01) ==
LOC: FTE 07:27
DX: N39.0 Urinary tract infection, site not specified (principal); F17.210 Nicotine dependence, cigarettes, uncomplicated
CPT/HCPCS: 81003; 81025; Z7502; 99283

== ENCOUNTER 2019-02-21 14:34 | Emergency (ER) | payer OTHER ==
[~2019-02-21] VITALS: Ht 167.6 cm; Wt 56.8 kg
[2019-02-21 15:11] VITALS: BP 116/79; PULSE 73; RESP 18; Ht 167.6 cm; Wt 56.8 kg
== END 2019-02-21 17:20 | disposition home or self-care (01) ==
LOC: FTE 14:34
DX: R30.0 Dysuria (principal); F17.210 Nicotine dependence, cigarettes, uncomplicated
CPT/HCPCS: 81003; 87086; Z7502; 99283